=== PATIENT | female | born 1995 | race Hispanic/Latino ===

== ENCOUNTER 2018-06-06 13:56 | Inpatient (IN) | payer OTHER ==
[~2018-06-06] VITALS: Ht 160 cm; Wt 106.1 kg
[2018-06-06 14:39] LABS: APPEARANCE,URINE Clear (CLEAR); BILIRUBIN,URINE Negative (NEGATIVE); COLOR,URINE Yellow (YELLOW); GLUCOSE, URINE (UA) Negative (NEGATIVE); KETONES,URINE Negative (NEGATIVE); LEUKOCYTE ESTERASE ,URINE Large (NEGATIVE); NITRATE,URINE Negative (NEGATIVE); OCCULT BLOOD,URINE Trace (NEGATIVE); PH,URINE 6.5 (5.0-8.0); PROTEIN,URINE Negative (NEGATIVE)
[2018-06-06 14:46] LABS: AMPHET/METH SCREEN,URINE NEGATIVE (NEGATIVE); BARBITURATE SCREEN, URINE NEGATIVE (NEGATIVE); BENZODIAZEPINES SCREEN,URINE NEGATIVE (NEGATIVE); CANNABINOID SCREEN,URINE NEGATIVE (NEGATIVE); COCAINE SCREEN,URINE NEGATIVE (NEGATIVE); OPIATE SCREEN,URINE NEGATIVE (NEGATIVE); PHENCYCLIDINE SCREEN,URINE NEGATIVE (NEGATIVE)
[2018-06-06 14:50] LABS: BACTERIA,URINE Rare /HPF (None Seen); WBC,URINE 26-50 /HPF (0-1)
[2018-06-06] MEDS ORDERED: OXYTOCIN-LR 20 UNITS/1000 ML 1,000 ML IV SCH (16:45)
[2018-06-06 16:56] LABS: HEMATOCRIT 41.6 % (36-48); MEAN CORPUSCULAR HEMOGLOBIN 34.5 pg (27.0-33.0); MEAN CORPUSCULAR VOLUME 100.1 fL (80-100); RED BLOOD CELL COUNT(AUTO) 4.16 MIL/uL (4.00-5.50); WHITE BLOOD COUNT (AUTO) 10.2 K/uL (4.8-10.8)
[2018-06-06 16:57] LABS: MEAN CORPUSCULAR HGB CONC 34.4 g/dL (32.0-36.0); NUCLEATED RED BLOOD CELLS 0.1 % (0.0-0.19); PLATELET COUNT (AUTO) 259 K/uL (130-400); RED CELL DISTRIBUTION WIDTH 13.4 % (11.0-15.5)
[2018-06-06] MEDS ORDERED: AMPICILLIN 2GM+NS 100ML 100 ML IV SCH (19:15)
[2018-06-06] MEDS: LACTATED RINGERS 1000ML 1,000 ML IV PRN (23:48)
[2018-06-06] MEDS: AMPICILLIN 1GM+NS 50ML 50 ML IV SCH (23:48)
[2018-06-07] MEDS: AMPICILLIN 1GM+NS 50ML 50 ML IV SCH (03:57)
[2018-06-07] MEDS ORDERED: PROMETHAZINE HCL 25 MG/ML 1ML AMPULE IM ONE (06:01)
[2018-06-07] MEDS ORDERED: MEPERIDINE-PF 50 MG/ML SYG ONE (06:01)
[2018-06-07 07:20] LABS: RAPID PLASMA REAGIN NONREACTIVE (NONREACTIVE)
[2018-06-07] MEDS ORDERED: OXYTOCIN 10 USP UNITS/ML 20 UNIT in LACTATED RINGERS 1000ML 1,000 ML IV SCH (07:30)
[2018-06-07] MEDS ORDERED: OXYTOCIN 10 USP UNITS/ML ONE ×3 (07:40→18:39)
[2018-06-07] MEDS ORDERED: LACTATED RINGERS 1000ML 1,000 ML IV ONE ×2 (07:40→18:39)
[2018-06-07] MEDS ORDERED: EPHEDRINE SULFATE 50 MG/ML AMPULE IVP PRN ×2 (12:00→19:45)
[2018-06-07] MEDS ORDERED: LACTATED RINGERS 500 ML 500 ML IV PRN (12:00)
[2018-06-07] MEDS ORDERED: NALOXONE HCL 0.4 MG/1 ML ML IV PRN (12:00)
[2018-06-07] MEDS ORDERED: CEFAZOLIN SODIUM 1 GM VIAL ONE (16:40)
[2018-06-07] MEDS ORDERED: CEFAZOLIN SODIUM 1 GM VIAL IVP PRN (16:45)
[2018-06-07] MEDS ORDERED: DURAMORPH PF1 MG/ML 10ML AMP IV ONE (16:50)
[2018-06-07] MEDS ORDERED: CEFAZOLIN SODIUM 1 GM VIAL IVP ONE (17:00)
[2018-06-07] MEDS ORDERED: EPHEDRINE SULFATE 50 MG/ML AMPULE ONE (17:02)
[2018-06-07] MEDS ORDERED: PHENYLEPHRINE HCL 10 MG/ML 1ML VIAL IV ONE (17:07)
[2018-06-07] MEDS ORDERED: METHYLERGONOVINE MALEATE 0.2 MG/1 ML ML IM ONE (17:25)
[2018-06-07] MEDS ORDERED: MIDAZOLAM HCL 1 MG/ML 2ML VIAL ONE (17:33)
[2018-06-07] MEDS ORDERED: ONDANSETRON HCL 4 MG/2 ML VIAL ONE (18:26)
[2018-06-07 19:26] VITALS: BP 112/50
[2018-06-07] MEDS ORDERED: PROMETHAZINE HCL 25 MG/ML 1ML AMPULE IM PRN (19:45)
[2018-06-07] MEDS ORDERED: ONDANSETRON HCL 4 MG/2 ML 8 MG in SODIUM CHLORIDE 0.9% 50 ML IVP NR (19:45)
[2018-06-07] MEDS ORDERED: ONDANSETRON HCL 4 MG/2 ML VIAL IVP PRN ×2 (19:45)
[2018-06-07] MEDS ORDERED: HYDROCODONE/ACETAMINOPHEN 5/325 MG TAB PO PRN ×2 (19:45)
[2018-06-07] MEDS ORDERED: METOCLOPRAMIDE 10 MG/2 ML VIAL IVP PRN (19:45)
[2018-06-07] MEDS ORDERED: MORPHINE SULFATE 2 MG/ML 1ML SYG IVP PRN (19:45)
[2018-06-07] MEDS ORDERED: NALOXONE HCL 0.4 MG/1 ML ML IVP PRN ×2 (19:45)
[2018-06-07] MEDS ORDERED: DiphenhydrAMINE HCL 50 MG/ML VIAL IVP PRN (19:45)
[2018-06-07] MEDS ORDERED: PREN-66 PO (22:22)
[2018-06-07 23:17] VITALS: BP 116/56
[2018-06-08] MEDS ORDERED: OXYTOCIN 10 USP UNITS/ML ONE ×2 (00:02)
[2018-06-08] MEDS: LACTATED RINGERS 1000ML 1,000 ML IV PRN (00:06)
[2018-06-08 03:07] VITALS: BP 110/60
[2018-06-08] MEDS ORDERED: BISACODYL 10 MG SUPP.RECT RC PRN (03:30)
[2018-06-08] MEDS ORDERED: LANOLIN 30GM OINTMENT TP PRN (03:30)
[2018-06-08] MEDS ORDERED: ACETAMINOPHEN-CODEINE 300/30MG TAB PO PRN (03:30)
[2018-06-08] MEDS ORDERED: ACETAMINOPHEN EXTRA STRENGTH 500 MG TABLET PO PRN (03:30)
[2018-06-08] MEDS ORDERED: DEXTROSE 5 %-0.45 % NACL 1,000 ML IV SCH (03:45)
[2018-06-08 05:26] LABS: HEMATOCRIT 33.7 % (36-48); MEAN CORPUSCULAR HEMOGLOBIN 34.3 pg (27.0-33.0); MEAN CORPUSCULAR HGB CONC 34.7 g/dL (32.0-36.0); MEAN CORPUSCULAR VOLUME 99.1 fL (80-100); NUCLEATED RED BLOOD CELLS 0.1 % (0.0-0.19); PLATELET COUNT (AUTO) 218 K/uL (130-400); RED CELL DISTRIBUTION WIDTH 13.2 % (11.0-15.5); WHITE BLOOD COUNT (AUTO) 11.6 K/uL (4.8-10.8)
[2018-06-08] MEDS: PROMETHAZINE HCL 25 MG/ML 1ML AMPULE IM SCH (05:50)
[2018-06-08] MEDS: MEPERIDINE-PF 50 MG/ML SYG IVP SCH (05:50)
[2018-06-08 07:44] VITALS: BP 107/64
[2018-06-08 08:22] LABS: HEPATITIS Bs ANTIGEN SCREEN P Negative (Negative)
[2018-06-08] MEDS: SIMETHICONE 80 MG TAB.CHEW PO PRN ×2 (09:13→20:48)
[2018-06-08] MEDS: DOCUSATE SODIUM 100 MG CAP PO SCH ×2 (09:13→20:48)
[2018-06-08] MEDS: IBUPROFEN 600 MG TABLET PO PRN ×2 (09:23→16:56)
[2018-06-08 11:39] VITALS: BP 110/66
[2018-06-08 16:02] VITALS: BP 113/58
[2018-06-08] MEDS: DIPH,PERTUSS(ACELL),TET VAC/PF 0.5 ML VIAL IM SCH (16:56)
[2018-06-08 19:59] VITALS: BP 108/66
[2018-06-09 00:04] VITALS: BP 105/55
[2018-06-09] MEDS: MEPERIDINE-PF 50 MG/ML SYG IVP SCH (01:12)
[2018-06-09] MEDS: DIPH,PERTUSS(ACELL),TET VAC/PF 0.5 ML VIAL IM SCH ×2 (01:13→03:39)
[2018-06-09] MEDS: PROMETHAZINE HCL 25 MG/ML 1ML AMPULE IM SCH (01:13)
[2018-06-09 03:22] VITALS: BP 118/52
[2018-06-09 03:27] VITALS: BP 128/78
[2018-06-09] MEDS: AMPICILLIN 1GM+NS 50ML 50 ML IV SCH ×2 (03:30→06:30)
[2018-06-09 07:53] VITALS: BP 135/75
[2018-06-09] MEDS: DOCUSATE SODIUM 100 MG CAP PO SCH (08:41)
[2018-06-09] MEDS: SIMETHICONE 80 MG TAB.CHEW PO PRN (08:41)
[2018-06-09] MEDS: IBUPROFEN 600 MG TABLET PO PRN (08:42)
[2018-06-09 11:56] VITALS: BP 145/65
== END 2018-06-09 13:00 | disposition home or self-care (01) | DRG 788 ==
LOC: EDH 13:56 → LDH 14:15 → OBSVTOIN 14:15 → WSH 06-07 21:20
PROVIDERS: ADMIT Obstetrics & Gynecology; ATTEND Obstetrics & Gynecology
PROC: 10D00Z1 Extraction of Products of Conception, Low, Open Approach (ICD-10-PCS; principal; 2018-06-07 17:00)
PROC: 3E0234Z Introduction of Serum, Toxoid and Vaccine into Muscle, Percutaneous Approach (ICD-10-PCS; 2018-06-08)
PROC: 3E0234Z Introduction of Serum, Toxoid and Vaccine into Muscle, Percutaneous Approach (ICD-10-PCS; 2018-06-09)
DX: O62.2 Other uterine inertia (principal); O99.824 Streptococcus B carrier state complicating childbirth; O32.4XX0 Maternal care for high head at term, not applicable or unspecified; Z37.0 Single live birth; Z23 Encounter for immunization; Z3A.39 39 weeks gestation of pregnancy
CPT/HCPCS: 36415; 59025; 59510; 76805; 76819; 80305; 81001; 85027; 86592; 86701; 86850; 86900; 86901; 87340; 87390; 90715; 96360; 96361; A4314; A4344; A4450; A4606; J0290; J0690; J2175; J2210; J2250; J2274; J2370; J2405; J2550; J2590; J3490; J7042; J7120; Q2038